=== PATIENT | female | born 1955 | race Caucasian/White ===

== ENCOUNTER 2019-02-04 08:13 | Emergency (ER) | payer MEDICARE, BC ==
[2019-02-04] MEDS ORDERED: Aspirin 81 MG Tab.Chew PO ONE (09:09)
--- NOTE | 2019-02-04 09:51 | CRLCR ---
INDICATION: Chest pain TECHNIQUE: Chest 2 views COMPARISON: 01/12/2014 FINDINGS: Cardiovascular and mediastinum: Heart size and vasculature are normal in caliber and appearance. Lungs and pleural spaces: Lungs are clear. No sign of infiltrate or mass. No sign of pleural effusion. No pneumothorax. Bones and soft tissues: No significant findings. IMPRESSION: No acute findings and no significant changes from the prior exam. Dictated by Antolin Portillo MD @ 02/04/2019 9:48:44 AM Dictated by: Antolin Portillo MD @ 02/04/2019 09:48:50 (Electronically Signed)
[2019-02-04 10:12] VITALS: BP 138/76; PULSE 88
--- NOTE | 2019-02-04 10:15 | EDM.PDOC ---
ED HPI GENERAL MEDICAL PROBLEM - General Chief Complaint: Back Pain or Injury Stated Complaint: SHOULDER,BACK PAIN,SOB Time Seen by Provider: 02/04/19 08:45 Source of Information: Reports: Patient History Limitations: Reports: No Limitations - History of Present Illness INITIAL COMMENTS - FREE TEXT/NARRATIVE: 63 yo hx of ovarian CA (in remission), morbid obesity presents with concerns of upper thoracic back pain. Started suddenly yesterday at approximately 5pm Has been intermittent since this time. Not exertional, but occasional SOB Does seem to be positional. Describe as sharp pain in the right mid-thoracic area that shoots across the bra line No cough. Not pleuritic. No fevers No hx of DVT, no LE swelling or pain, no recent surgeries No history of cardiac dz, + family hx in mother No melena or change in BM Upper Back Pain Score (Numeric/FACES): 3 - Related Data Allergies Allergy/AdvReac Type Severity Reaction Status Date / Time amoxicillin [Amoxicillin] Allergy Rash Verified 02/04/19 08:34 hydrocodone Allergy Nausea Verified 02/04/19 08:34 oxycodone [From OxyContin] Allergy Nausea Verified 02/04/19 08:34 sulfamethoxazole Allergy Rash Verified 02/04/19 08:34 [From Bactrim] trimethoprim [From Bactrim] Allergy Rash Verified 02/04/19 08:34 codeine AdvReac Hallucinati Verified 02/04/19 08:34 ons Home Meds: Home Meds Ondansetron [Zofran ODT] 4 mg PO Q4H PRN #30 tab.dis 01/16/14 [Rx] Naproxen Sodium [Aleve] 220 mg PO DAILY 02/04/19 [History] Past Medical History Respiratory History: Reports: Asthma Gastrointestinal History: Reports: Gastritis 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: Neurological History: Reports: Neuropathy, Peripheral Endocrine/Metabolic History: Reports: Obesity/BMI 30+ Hematologic History: Reports: Blood Transfusion(s) Oncologic (Cancer) History: Reports: Ovarian - Past Surgical History Female Surgical History: Reports: Hysterectomy, Oophorectomy Social & Family History - Tobacco Use Smoking Status *Q: Never Smoker - Caffeine Use Caffeine Use: Reports: Coffee - Recreational Drug Use Recreational Drug Use: No ED ROS GENERAL - Review of Systems Review Of Systems: See Below Constitutional: Reports: No Symptoms HEENT: Reports: No Symptoms Respiratory: Reports: Shortness of Breath Cardiovascular: Reports: Chest Pain Endocrine: Reports: No Symptoms GI/Abdominal: Denies: Abdominal Pain : Reports: No Symptoms Musculoskeletal: Reports: No Symptoms Skin: Reports: No Symptoms Neurological: Reports: No Symptoms Psychiatric: Reports: No Symptoms Hematologic/Lymphatic: Reports: No Symptoms Immunologic: Reports: No Symptoms ED EXAM, UPPER BACK/NECK PAIN - Physical Exam Exam: See Below Exam Limited By: No Limitations General Appearance: Alert, No Apparent Distress Ears Exam: Normal External Exam Nose Exam: Normal Inspection Throat/Mouth Exam: Normal Inspection Head Exam: Atraumatic, Normocephalic Cardiovascular/Respiratory: Regular Rate, Rhythm, No M/R/G, No Respiratory Distress. No: Rales, Rhonchi, Decreased Pulses, Wheezing GI/Abdominal: Soft, Non-Tender Back Exam: Normal Inspection. No: CVA Tenderness (R), CVA Tenderness (L) Extremities: Normal Inspection. 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50) M/uL Hgb 12.8 (12.0-15.0) g/dL Hct 40.1 (36.0-48.0) % MCV 98 (80-98) fL MCH 31 (27-31) pg MCHC 32 (32-36) % Plt Count 205 (150-400) K/uL D-Dimer, Quantitative 445 H (0.0-400.0) ng/mL Sodium 140 (140-148) mmol/L Potassium 4.0 (3.6-5.2) mmol/L Chloride 105 (100-108) mmol/L Carbon Dioxide 28 (21-32) mmol/L Anion Gap 7.4 (5.0-14.0) mmol/L BUN 21 H D (7-18) mg/dL Creatinine 0.8 (0.6-1.0) mg/dL Est Cr Clr Drug Dosing 60.54 mL/min Estimated GFR (MDRD) > 60 (>60) Glucose 120 H (74-106) mg/dL Calcium 8.9 (8.5-10.1) mg/dL Total Bilirubin 0.4 (0.2-1.0) mg/dL AST 13 L (15-37) U/L ALT 26 (12-78) U/L Alkaline Phosphatase 112 (46-116) U/L Troponin I < 0.017 (0.000-0.056) ng/mL Total Protein 7.2 (6.4-8.2) g/dL Albumin 3.4 (3.4-5.0) g/dL Globulin 3.8 H (2.3-3.5) g/dL Albumin/Globulin Ratio 0.9 L (1.2-2.2) Lipase 48 L (73-393) U/L Meds: Medications Discontinued Medications Generic Name Dose Route Start Last Admin Trade Name Freq PRN Reason Stop Dose Admin Aspirin 324 mg 02/04/19 09:09 02/04/19 09:15 Aspirin PO 02/04/19 09:10 324 mg ONETIME ONE Administration - Re-Assessments/Exams Free Text/Narrative Re-Assessment/Exam: 63 yo with hx of obesity, ovarian CA present with concern of positional, intermittent upper thoracic back pain associated with dyspnea Unremarkable exam, normal vitals, cannot reproduce pain Normal EKG, negative trop after > 12 hrs of symptoms - very low risk this is ACS No infectious symptoms, no evidence of this or structural abnormality on CXR. Does not seem consistent with aortic pathology. Some concern for PE, although overall seems low risk. Obtained d-dimer. This is mildly elevated. I reviewed this with the patient but upon re-evaluation she is almost asymptomatic and was primarily looking for re-assurance this wasn't a heart attack. She would like to forgo CT and return for worsening symptoms, which I believe is reasonable. We discussed this is likely MSK or radicular pain - she will treat symptomatically with low threshold to see care of MD if worsening. 02/04/19 10:20 Departure - Departure Time of Disposition: 10:12 Disposition: Home, Self-Care 01 Clinical Impression: Back pain Qualifiers: Back pain location: thoracic back pain Chronicity: acute Back pain laterality: right Qualified Code(s): M54.6 - Pain in thoracic spine - Discharge Information Instructions: Acute Back Pain, Adult Referrals: Juan Brown MD [Primary Care Provider] - Forms: ED Department Discharge Additional Instructions: Please take aleve as discussed for the pain in your back. Activity as tolerated. As we discussed, your test for blood clots is mildly elevated. If you noticed any changes in your breathing or lower extremity swelling please return to the emergency room. - My Orders Last 24 Hours: My Active Orders 02/04/19 09:12 EKG 12 Lead [EK] Routine 02/04/19 09:13 EKG Documentation Completion [RC] ASDIRECTED - Assessment/Plan Last 24 Hours: My Active Orders 02/04/19 09:12 EKG 12 Lead [EK] Routine 02/04/19 09:13 EKG Documentation Completion [RC] ASDIRECTED
== END 2019-02-04 10:28 | disposition home or self-care (01) ==
LOC: JP.ED 08:13
DX: M54.6 Pain in thoracic spine (principal); E66.01 Morbid (severe) obesity due to excess calories; Z88.1 Allergy status to other antibiotic agents; Z88.2 Allergy status to sulfonamides; Z88.6 Allergy status to analgesic agent; Z88.5 Allergy status to narcotic agent; Z90.710 Acquired absence of both cervix and uterus
CPT/HCPCS: 36415; 71046; 80053; 83690; 84484; 85027; 85379; 93005; 99283; 99285; A9270

== ENCOUNTER 2024-12-05 08:33 | Emergency (ER) | payer MEDICARE, BC ==
[2024-12-05 09:17] VITALS: BP 148/60; PULSE 81
== END 2024-12-05 10:52 | disposition home or self-care (01) ==
LOC: JP.ED 08:33
DX: M25.511 Pain in right shoulder (principal); E66.9 Obesity, unspecified; Z88.0 Allergy status to penicillin; Z88.8 Allergy status to other drugs, medicaments and biological substances; Z90.710 Acquired absence of both cervix and uterus; Z68.30 Body mass index [BMI] 30.0-30.9, adult
CPT/HCPCS: 71046; 71046-26; 73030-26-RT; 73030-RT; 93010; 99283